=== PATIENT | male | born 1935 | race Two or more races ===

== ENCOUNTER 2023-02-21 10:02 | Inpatient (IN) | payer SELFPAY ==
[~2023-02-21] VITALS: Ht 160 cm; Wt 80.0 kg
[2023-02-21 10:18] LABS: Potassium 4.2 mmol/L (3.5-5.1)
[2023-02-21] MEDS ORDERED: METHOCARBAMOL 500 MG TAB PO SCH (14:00)
[2023-02-21] MEDS ORDERED: INDOMETHACIN 25 MG CAP PO SCH (14:00)
== END 2023-02-21 12:50 | disposition home or self-care (01) | DRG 554 ==
LOC: DOU IN ADS 10:02
PROVIDERS: ADMIT Internal Medicine Geriatric Medicine; ATTEND Internal Medicine Geriatric Medicine
DX: M15.9 Polyosteoarthritis, unspecified (principal)
CPT/HCPCS: 36415; 82565; 84132; G0378